=== PATIENT | female | born 1995 | race Caucasian/White ===

== ENCOUNTER 2025-01-23 14:38 | Emergency (ER) | payer SELFPAY ==
[~2025-01-23] VITALS: Ht 162.6 cm; Wt 93.0 kg
[2025-01-23 14:55] VITALS: PULSE 74; RESP 16; TEMP 97.6; O2SAT 100
[2025-01-23] MEDS: HYDROCODONE/APAP 5MG-325MG TAB PO ONE (16:39)
[2025-01-23] MEDS: ONDANSETRON HCL 4 MG ORAL DISINTEGRATING TAB PO ONE (16:39)
== END 2025-01-23 18:29 | disposition home or self-care (01) ==
LOC: ER 15:31
DX: M79.672 Pain in left foot (principal); M21.42 Flat foot [pes planus] (acquired), left foot; M21.41 Flat foot [pes planus] (acquired), right foot
CPT/HCPCS: 73610; 73630; 99283; Q0162